=== PATIENT | male | born 1975 | race Two or more races ===

== ENCOUNTER → 2018-07-31 | Outpatient (CLI) | payer OTHER ==
--- NOTE | 2018-07-31 14:23 | KCIC ---
RS Compliance Statement: One or more of the following individualized dose reduction techniques were utilized for this examination: 1. Automated exposure control 2. Adjustment of the mA and/or kV according to patient size 3. Use of iterative reconstruction technique CT head without contrast 07/31/2018 1:30 PM INDICATION: Closed head injury to the right parietal area. Scalp hematoma. COMPARISON: None available TECHNIQUE: Multiple axial CT images of the head were obtained from skull base through the vertex without intravenous contrast. FINDINGS: Head: Ventricles, sulci and basal cisterns are within normal limits. There is no hydrocephalus. Martel-white matter differentiation is normal. There is no acute intracranial hemorrhage. There is no mass, mass effect or midline shift. Posterior fossa is normal in appearance. Visualized portions of the orbits are normal. Paranasal sinuses are well aerated. Mastoid air cells are well aerated. Scalp and calvaria are normal. Subgaleal hematoma is identified along the right parietal region measuring 6 mm in maximal thickness. IMPRESSION: No acute intracranial hemorrhage. There is a subgaleal hematoma along the right parietal region measuring 6 mm in maximal thickness Electronically signed by: Mar Peña MD (07/31/2018 2:20 PM) [id number]
== END | disposition home or self-care (01) ==
LOC: KCIC CT 13:52
PROVIDERS: ATTEND Preventive Medicine Occupational Medicine
DX: S00.03XA Contusion of scalp, initial encounter (principal); X58.XXXA Exposure to other specified factors, initial encounter; Y93.89 Activity, other specified; Y92.89 Other specified places as the place of occurrence of the external cause; Y99.8 Other external cause status
CPT/HCPCS: 70450